=== PATIENT | female | born 1965 | race Caucasian/White ===

== ENCOUNTER → 2017-01-23 | Outpatient (CLI) | payer OTHER ==
[~2017-01-23] MED LIST: ABILIFY5 MG PO; AMBIEN 10MG10 MG PO; CLEOCIN HC150 MG/CAP PO; FLEXERIL 1010 MG/TAB PO; IMITREX100 MG PO; KLONOPIN 0.5MG0.5 MG PO; KLOR-CON M2020 MEQ PO; LAMICTAL 100MG100 MG PO; LAMICTAL 25MG T25 MG PO; LASIX 20MG TABL20 MG PO; LASIX 40MG TABL40 MG PO; LEVAQUIN 750MG750 M1 PO; LUNESTA3 MG PO; NEURONTIN300 MG/CAP PO; RELAFEN 50500 MG/TAB PO; VIBRID
== END ==
LOC: BHSO 09:44
DX: F33.1 Major depressive disorder, recurrent, moderate (principal)

== ENCOUNTER → 2017-05-31 | Outpatient (CLI) | payer OTHER | LOC: BHSO 08:56 | DX: F33.1 Major depressive disorder, recurrent, moderate (principal) ==

== ENCOUNTER → 2017-07-03 | Outpatient (CLI) | payer OTHER | LOC: BHSO 13:56 | DX: F33.1 Major depressive disorder, recurrent, moderate (principal) ==

== ENCOUNTER → 2017-07-12 | Outpatient (CLI) | payer OTHER | LOC: BHSO 10:00 | DX: F33.0 Major depressive disorder, recurrent, mild (principal) ==

== ENCOUNTER → 2017-07-25 | Outpatient (CLI) | payer OTHER | LOC: COL.CARD 08:26 | DX: R00.0 Tachycardia, unspecified (principal) ==

== ENCOUNTER → 2017-08-09 | Outpatient (CLI) | payer OTHER | LOC: BHSO 09:04 | DX: F33.1 Major depressive disorder, recurrent, moderate (principal) ==

== ENCOUNTER → 2017-08-22 | Outpatient (CLI) | payer OTHER | LOC: BHSO 16:13 | DX: F33.0 Major depressive disorder, recurrent, mild (principal) ==

== ENCOUNTER → 2017-08-30 | Outpatient (CLI) | payer OTHER | LOC: BHSO 09:00 | DX: F41.1 Generalized anxiety disorder (principal) ==

== ENCOUNTER → 2017-09-20 | Outpatient (CLI) | payer OTHER | LOC: BHSO 08:59 | DX: F33.0 Major depressive disorder, recurrent, mild (principal) ==

== ENCOUNTER → 2017-10-02 | Outpatient (CLI) | payer OTHER | LOC: BHSO 15:58 | DX: F33.0 Major depressive disorder, recurrent, mild (principal) ==